=== PATIENT | female | born 1980 | race Hispanic/Latino ===

== ENCOUNTER → 2018-05-28 | Outpatient (CLI) | payer BC ==
--- NOTE | 2018-05-28 18:33 | Diagnostic Imaging Report ---
PROCEDURE:TRANSVAGINAL ULTRASOUND COMPARISON:None. INDICATIONS:PELVIC PAIN TECHNIQUE: Grayscale transverse and sagittal transabdominal and transvaginal images were obtained of the pelvis. Transvaginal imaging was medically necessary to better evaluate the endometrium. FINDINGS: 37 year-old female patient G2, P2 with stated LMP 04/29/2018 UTERUS: 6.4 x 3.6 x 5.4 cm. Normal echogenicity. No focal lesions. ENDOMETRIUM: 1.1 cm. Homogeneous echotexture without focal thickening. RIGHT OVARY: 2.3 x 1.8 x 2.3 cm. 0.8 x 0.6 x 0.7 cm hypoechoic lesion with internal echoes and no increased vascularity, likely representing a small hemorrhagic cyst. LEFT OVARY: 2.5 x 1.4 x 2.0 cm. No focal lesions. Normal follicles are identified. There is no free fluid within the pelvis. No adnexal masses. CONCLUSION: 1. 0.8 cm hypoechoic lesion in the right ovary likely represents a small hemorrhagic cyst, for which no further followup is indicated. Kana Paredes M.D. Dictated by: Kana Paredes M.D. on 05/28/2018 at 18:38 Electronically approved by: Kana Paredes M.D. on 05/28/2018 at 18:38
--- NOTE | 2018-05-28 18:33 | Diagnostic Imaging Report ---
PROCEDURE:URINARY BLADDER ULTRASOUND COMPARISON:None. INDICATIONS:PELVIC PAIN CONCLUSION: Please refer to transvaginal ultrasound performed at the same date and time for full dictated report. Kana Paredes M.D. Dictated by: Kana Paredes M.D. on 05/28/2018 at 18:38 Electronically approved by: Kana Pardees M.D. on 05/28/2018 at 18:38
== END ==
LOC: US 16:17
PROVIDERS: ATTEND Obstetrics & Gynecology
DX: R10.2 Pelvic and perineal pain (principal)
CPT/HCPCS: 76830; 76857

== ENCOUNTER 2018-11-15 13:58 | Emergency (ER) | payer BC ==
[~2018-11-15] VITALS: Ht 152.4 cm; Wt 47.2 kg
--- OUTSIDE RECORDS SUMMARY | 2018-11-15 14:01 | XMS REPORT ---
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 Allergies, Adverse Reactions, Alerts This patient has no known allergies or adverse reactions. Medications This patient has no known medications. Results Test Description Test Time Test Comments Text Results Atomic Results Result Comments US TRANSVAGINAL 2018-05-28 18:38:00 [place] [address] Patient Name: ALANA GREEN MR #: [id number] : 1980 Age/Sex: 37/F Req #: [id number] [facility] Physician: Ordered by: MAAME NEWMAN M.D. Report #: [id number] Location: Room/Bed: Procedure: [id number] US/US TRANSVAGINAL Exam Date: 05/28/18 Exam Time: 1638 REPORT STATUS: Signed PROCEDURE: TRANSVAGINAL ULTRASOUND COMPARISON: None. INDICATIONS: PELVIC PAIN TECHNIQUE: Grayscale transverse and sagittal transabdominal and transvaginal images were obtained of the pelvis. Transvaginal imaging was medically necessary to better evaluate the endometrium. FINDINGS: 37 year- old female patient G2, P2 with stated LMP 04/29/2018 UTERUS: 6.4 x 3.6 x 5.4 cm. Normal echogenicity. No focal lesions. ENDOMETRIUM: 1.1 cm. Homogeneous echotexture without focal thickening. RIGHT OVARY: 2.3 x 1.8 x 2.3 cm. 0.8 x 0.6 x 0.7 cm hypoechoic lesion with internal echoes and no increased vascularity, likely representing a small hemorrhagic cyst. LEFT OVARY: 2.5 x 1.4 x 2.0 cm. No focal lesions. Normal follicles are identified. There is no free fluid within the pelvis. No adnexal masses. CONCLUSION: 1. 0.8 cm hypoechoic lesion in the right ovary likely represents a small hemorrhagic cyst, for which no further followup is indicated. Ervin Paredes M.D. Dictated by: Ervin Paredes M.D. on 05/28/2018 at 18:38 Electronically approved by: Ervin Paredes M.D. on 05/28/2018 at 18:38 Dictated By: ERVIN PAREDES MD 37 Transcribed By: FINN on 05/28/181837 COPY TO: MAAME NEWMAN M.D. PELVIC (NON OB) ZEE OR F/U 2018-05-28 18:38:00 [place] [id number] Patient Name: ALANA GREEN MR #: [id number] : 1980 Age/Sex: 37/F Req #: [id number] Adm Physician: Ordered by: MAAME NEWMAN M.D. Report #: [id number] Location: Room/Bed: Procedure: [id number] US/US PELVIC (NON OB) ZEE OR F/U Exam Date: 05/28/18 Exam Time: 1638 REPORT STATUS: Signed PROCEDURE: URINARY BLADDER ULTRASOUND COMPARISON: None. INDICATIONS: PELVIC PAIN CONCLUSION: Please refer to transvaginal ultrasound performed at the same date and time for full dictated report. Ervin Paredes M.D. Dictated by: Ervin Paredes M.D. on 05/28/2018 at 18:38 Electronically approved by: Ervin Paredes M.D. on 05/28/2018 at 18:38 Dictated By: ERVIN PAREDES MD 37 Transcribed By: FINN on 05/28/181837 COPY TO: MAAME NEWMAN M.D.
[2018-11-15] MEDS ORDERED: KETOROLAC TROMETHAMINE 30 MG/ML VIAL IV STA (14:50)
[2018-11-15] MEDS ORDERED: SODIUM CHLORIDE 0.9% 1000ML 1,000 ML IV SCH (15:00)
[2018-11-15] MEDS ORDERED: POTASSIUM CHLORIDE 20 MEQ TAB CR PO STA (15:57)
[2018-11-15] MEDS ORDERED: ONDANSETRON HCL INJ 2 MG/ML VIAL IV STA (17:01)
[2018-11-15] MEDS ORDERED: MECLIZINE HCL 12.5 MG TAB PO SCH (21:00)
== END 2018-11-15 17:55 | disposition home or self-care (01) ==
LOC: FSED 13:58
DX: R42 Dizziness and giddiness (principal); R51 Headache; E87.6 Hypokalemia; K52.9 Noninfective gastroenteritis and colitis, unspecified
CPT/HCPCS: 80053; 81003; 81025; 85025; 99284; J1885; J2405; J7030

== ENCOUNTER → 2020-11-08 | Outpatient (CLI) | payer OTHER ==
[~2020-11-08] MED LIST: COVID-19 VACC, MRNA(MODERNA)/PF 100 MCG/0.5 ML VIAL IM ONE
== END ==
LOC: VACCPMC 16:00
DX: Z23 Encounter for immunization (principal); Z20.822 Contact with and (suspected) exposure to COVID-19

== ENCOUNTER → 2020-12-11 | Outpatient (CLI) | payer OTHER | END | DRG 951 | LOC: VACCPMC 09:57 | DX: Z23 Encounter for immunization (principal); Z20.822 Contact with and (suspected) exposure to COVID-19 | CPT/HCPCS: 0012A; 91301 ==

== ENCOUNTER → 2021-09-04 | Outpatient (CLI) | payer OTHER | LOC: VACCPMC 10:15 | DX: Z23 Encounter for immunization (principal); Z20.822 Contact with and (suspected) exposure to COVID-19 ==